=== PATIENT | male | born 1935 | race Caucasian/White ===

== ENCOUNTER → 2017-02-06 | Outpatient (CLI) | payer OTHER, BC ==
[2017-02-06 10:34] LABS: BLOOD UREA NITROGEN 23 mg/dl (7-18); BUN/CREATININE RATIO 16.7 (10-20); CALCIUM 9.1 mg/dl (8.5-10.1); CARBON DIOXIDE 30 mmol/L (21-32); CHLORIDE 110 mmol/L (98-107); GLUCOSE 94 mg/dl (70-99); POTASSIUM 4.9 mmol/L (3.5-5.1); SODIUM 143 mmol/L (136-145)
[2017-02-06 10:38] LABS: CHOLESTEROL 212 mg/dl (0-200); CHOLESTEROL/HDL RATIO 4.3; HDL CHOLESTEROL 49 mg/dl; LDL CHOLESTEROL CALCULATED 115 mg/dl; TRIGLYCERIDES 242 mg/dl (0-150); VERY LOW DENSITY LIPOPROT CALC 48 mg/dl
== END | disposition home or self-care (01) ==
LOC: C.LABFOXMH 10:06
PROVIDERS: ATTEND Internal Medicine
DX: E78.2 Mixed hyperlipidemia (principal)

== ENCOUNTER → 2017-03-14 | Outpatient (CLI) | payer OTHER, BC ==
[2017-03-14 09:11] LABS: BASO % 0.3 %; BASO ABS # 0.03 K/uL (0-0.2); COMPLETE YES; HEMATOCRIT 46.8 % (42-52); LYMPH % 33.3 %; LYMPH ABS # 3.76 K/uL (1.2-3.4); MEAN CELL VOLUME 98.7 fL (80-100); MEAN CORPUSCULAR HEMOGLOBIN 31.2 pg (25-34); MEAN CORPUSCULAR HGB CONC 31.6 g/dl (32-36); MEAN PLATELET VOLUME 10.2 fL (7.4-10.4); MONO % 12.9 %; NEUT % 51.5 %; PLATELET COUNT 194 K/uL (130-400); RED BLOOD COUNT 4.74 M/uL (4.7-6.1); WHITE BLOOD COUNT 11.28 K/uL (4.8-10.8)
[2017-03-14 09:18] LABS: ALT/SGPT 26 U/L (12-78); BLOOD UREA NITROGEN 28 mg/dl (7-18); BUN/CREATININE RATIO 17.4 (10-20); CALCIUM 8.7 mg/dl (8.5-10.1); CARBON DIOXIDE 28 mmol/L (21-32); CHLORIDE 106 mmol/L (98-107); GLUCOSE 105 mg/dl (70-99); POTASSIUM 4.8 mmol/L (3.5-5.1); SODIUM 140 mmol/L (136-145)
[2017-03-14 09:30] LABS: ALB/GLOB RATIO 0.9 (0.9-2); ALKALINE PHOSPHATASE 74 U/L (45-117); AST/SGOT 20 U/L (15-37)
== END | disposition home or self-care (01) ==
LOC: C.LABFOXMH 08:49
PROVIDERS: ATTEND Internal Medicine
DX: R53.83 Other fatigue (principal); R35.1 Nocturia

== ENCOUNTER → 2017-03-15 | Outpatient (CLI) | payer OTHER, BC ==
--- NOTE | 2017-03-15 10:45 | DIAGNOSTIC IMAGING REPORT ---
CHEST 2 VIEWS ROUTINE CLINICAL HISTORY: COUGH dyspnea COMPARISON STUDY: No previous studies for comparison. FINDINGS: Moderate emphysematous change. Slight hilar prominence bilaterally most likely secondary to central pulmonary vasculature. Bipolar cardiac pacemaker. IMPRESSION: Emphysematous change. No acute process. Electronically signed by: Rodolfo Duenas M.D. 03/15/2017 10:44 AM Dictated Date/Time: 03/15/2017 10:41 AM
== END | disposition home or self-care (01) ==
LOC: C.RADBC 10:13
PROVIDERS: ATTEND Internal Medicine
DX: R05 Cough (principal)

== ENCOUNTER → 2017-04-04 | Outpatient (CLI) | payer OTHER, BC | END | disposition home or self-care (01) | LOC: C.LABFOXMH 08:39 | PROVIDERS: ATTEND Internal Medicine Hospice and Palliative Medicine | DX: R53.83 Other fatigue (principal) ==

== ENCOUNTER → 2017-07-11 | Outpatient (CLI) | payer OTHER, BC | END | disposition home or self-care (01) | LOC: C.PATHSPEC 17:13 | PROVIDERS: ATTEND Urology | DX: R31.29 Other microscopic hematuria (principal) ==

== ENCOUNTER → 2017-11-26 | Outpatient (CLI) | payer OTHER, BC ==
[2017-11-26 09:31] LABS: BLOOD UREA NITROGEN 31 mg/dl (7-18); CARBON DIOXIDE 26 mmol/L (21-32); CREATININE 1.58 mg/dl (0.60-1.40); GLUCOSE 105 mg/dl (70-99); POTASSIUM 4.6 mmol/L (3.5-5.1); SODIUM 139 mmol/L (136-145)
== END | disposition home or self-care (01) ==
LOC: C.LABFOXMH 08:55
PROVIDERS: ATTEND Internal Medicine
DX: I10 Essential (primary) hypertension (principal)

== ENCOUNTER → 2017-12-24 | Outpatient (CLI) | payer OTHER, BC | END | disposition home or self-care (01) | LOC: C.LABSPEC 11:32 | PROVIDERS: ATTEND Urology | DX: R39.15 Urgency of urination (principal) ==

== ENCOUNTER → 2018-01-23 | Outpatient (CLI) | payer OTHER, BC ==
[2018-01-23 09:48] LABS: ALBUMIN 3.5 gm/dl (3.4-5.0); ALT/SGPT 20 U/L (12-78); AST/SGOT 17 U/L (15-37); BLOOD UREA NITROGEN 29 mg/dl (7-18); CALCIUM 8.6 mg/dl (8.5-10.1); CARBON DIOXIDE 30 mmol/L (21-32); CREATININE 1.46 mg/dl (0.60-1.40); GLUCOSE 99 mg/dl (70-99); POTASSIUM 4.4 mmol/L (3.5-5.1); SODIUM 141 mmol/L (136-145)
[2018-01-23 09:51] LABS: ALKALINE PHOSPHATASE 73 U/L (45-117); TOTAL PROTEIN 7.1 gm/dl (6.4-8.2)
== END | disposition home or self-care (01) ==
LOC: C.LABFOXMH 08:44
PROVIDERS: ATTEND Internal Medicine
DX: R39.15 Urgency of urination (principal)

== ENCOUNTER → 2018-02-11 | Outpatient (CLI) | payer OTHER, BC ==
[~2018-02-11] MED LIST: OPTIRAY 320 IV PRN
--- NOTE | 2018-02-11 09:23 | DIAGNOSTIC IMAGING REPORT ---
ABD/PELVIS COMBO CLINICAL HISTORY: 82 years-old Male presenting with R31.29 Hematuria, [id number] Urinary urgency, enlarged prostate. TECHNIQUE: Multidetector CT of the abdomen and pelvis was performed before and after the administration of intravenous contrast. IV contrast: 116 mL of Optiray 320. A dose lowering technique was used consistent with the principles of ALARA (as low as reasonably achievable). COMPARISON: 07/08/2015. CT DOSE (mGy.cm): The estimated cumulative dose is 1030.85 mGycm. FINDINGS: Site Lead topogram: Pacer leads to the right atrium and right ventricular apex. Lung bases: Minimal basilar opacities, likely atelectasis. 1.5 cm lobular solid nodule or consolidation in the subpleural right middle lobe (series 5 image 22). Bandlike opacity emanating from this may indicate scarring or atelectasis. Triangular fissural 4 mm nodule in the right middle lobe (series 5 image 9). Trace emphysematous changes. Aortic valve calcification. Pacer lead visualized. Normal heart size. No pericardial or pleural effusion. Liver: Normal morphology. Normal density. No liver lesion. Patent hepatic vasculature. Biliary: No intrahepatic or extrahepatic biliary ductal dilatation. Normal gallbladder. Pancreas: Mild parenchymal atrophy. Spleen: Normal. Adrenal glands: Normal. Kidneys and ureters: No nephrolithiasis. Multiple well-defined hypodense lesions, which are low density and nonenhancing consistent with simple cysts. Multiple parapelvic cysts also noted. No hydronephrosis. Ureters poorly opacified in the distal portions. Allowing for this limitation in their assessment, ureters are nondistended and normal-appearing. No urothelial thickening or ureteral calculi. Bladder: Incompletely evaluated secondary to underdistention. Perivesicular vascular prominence. Pelvic organs: Prostate enlargement likely secondary to benign prostatic hyperplasia. Bowel: Diverticulosis of the sigmoid and descending colon. Mild stool burden. No pericolonic inflammatory change or wall thickening. The appendix is normal. No bowel obstruction. Peritoneal cavity: No free fluid or intraperitoneal gas. Lymph nodes: No enlarged lymph nodes in the abdomen or pelvis. Vasculature: Atherosclerosis of the normal caliber abdominal aorta. IVC patent. Abdominal wall: Normal. Musculoskeletal: Degenerative changes of the spine. IMPRESSION: 1. Diverticulosis of the sigmoid and descending colon. No convincing evidence of diverticulitis. 2. Numerous bilateral renal cysts. No hydronephrosis. No nephrolithiasis or ureteral calculi. 3. Allowing for underdistention of the bladder, prominent perivesicular vascularity could imply acute or chronic inflammation. Correlate with urinalysis to exclude cystitis. Alternatively, this appearance could relate to chronic bladder outlet obstruction. 4. Prostatomegaly. 5. 1.5 cm lobular solid nodule or consolidation in the right middle lobe. Follow-up per [employer] Society 2017 recommendations below. This is indeterminate. Please refer to below summary of Fleischner Society 2017 recommendations for follow-up of incidental CT nodules (H Srikanth et al. Guidelines for management of incidental pulmonary nodules detected on CT images: From the Fleischner Society 2017. Radiology 2017; 284: 228-243.) SOLID NODULES Single nodule; size < 6 mm * Low risk patients: No routine follow-up * High risk patients: Optional CT at 12 months Single nodule; size 6-8 mm * Low risk patients: CT at 6-12 months, then consider CT at 18-24 months * High risk patients: CT at 6-12 months, then at 18-24 months Single nodule; size > 8 mm * Either low or high risk patients: Considered CT at 3 months, PET/CT, or tissue sampling Multiple nodules; size < 6 mm * Low risk patients: No routine follow up * High risk patients: Optional CT at 12 months Multiple nodules; size 6-8 mm * Low risk patients: CT at 3-6 months, then consider CT at 18-24 months * High risk patients: CT at 3-6 months, then at 18-24 months Multiple nodules; size > 8 mm * Low risk patients: CT at 3-6 months, then consider at 18-24 months * High risk patients: CT at 3-6 months, then at 18-24 months SUBSOLID NODULES Single ground-glass nodule * Nodule size < 6 mm: No routine follow-up * Nodule size > or = 6 mm: CT at 6-12 months to confirm persistence, then CT every 2 years until 5 years Single part-solid nodule * Nodule size < 6 mm: No routine follow-up * Nodules size > or = 6 mm: CT at 3-6 months to confirm persistence. If unchanged and solid component remains < 6 mm, annual CT should be performed for 5 years Multiple nodules * Nodule size < 6 mm: CT at 3-6 months. If stable, consider CT at 2 and 4 years. * Nodules size > or = 6 mm: CT at 3-6 months. Subsequent management based on the most suspicious nodule(s) NOTE: 1) These guidelines apply to incidental nodules. These guidelines do NOT apply to patients younger than 35 years, immunocompromised patients, or patients with cancer. 2) Risk categories: * Low risk patients: Minimal or absent history of smoking and/or other known risk factors * High risk patients: History of smoking, exposure to other carcinogens, emphysema, fibrosis, upper lobe location, family history of lung cancer, etc. 3) If a nodule up to 8 mm is partly solid or is ground glass, further follow-up is required after 24 months to exclude possible slow growing adenocarcinoma. Electronically signed by: Arnol Marinelli M.D. 02/11/2018 9:22 AM Dictated Date/Time: 02/11/2018 9:06 AM
== END | disposition home or self-care (01) ==
LOC: C.CTS 08:31
PROVIDERS: ATTEND Urology
DX: R31.29 Other microscopic hematuria (principal); R39.15 Urgency of urination; K57.30 Diverticulosis of large intestine without perforation or abscess without bleeding; Q61.02 Congenital multiple renal cysts; N40.1 Benign prostatic hyperplasia with lower urinary tract symptoms; R91.1 Solitary pulmonary nodule

== ENCOUNTER → 2018-04-25 | Outpatient (CLI) | payer OTHER, BC ==
--- NOTE | 2018-04-25 15:16 | DIAGNOSTIC IMAGING REPORT ---
HEAD WITHOUT CONTRAST (CT) CLINICAL HISTORY: 82 years-old Male with R HEMIPARESIS, HX OF AFIB. Acute strokelike symptoms with right hemiparesis TECHNIQUE: Multiple axial CT images of the head were obtained without contrast. A dose lowering technique was utilized adhering to the principles of ALARA. CT DOSE: 614.27 mGy.cm COMPARISON: None. FINDINGS: No acute intracranial hemorrhage, midline shift, intracranial mass, hydrocephalus, territorial ischemia or abnormal extra-axial collection. Age-related involutional changes. Moderate low-attenuation about the white matter suggests chronic microvascular ischemic changes. Cerebral vascular calcifications are noted. Probable remote subcentimeter lacunar infarction about the left lentiform nucleus posteriorly, images 11 and 12 of series 2. The calvarium is intact. The paranasal sinuses, mastoid air cells, and middle ear cavities are clear. IMPRESSION: 1. No acute intracranial hemorrhage, midline shift or abnormal extra-axial collection. 2. Atrophy with chronic microvascular ischemic changes. 3. Subcentimeter area of low-attenuation about the left lentiform nucleus suggests age-indeterminate lacunar infarction. The above report was generated using voice recognition software. It may contain grammatical, syntax or spelling errors. Electronically signed by: Mio Nguyen M.D. 04/25/2018 3:15 PM Dictated Date/Time: 04/25/2018 3:11 PM
== END | disposition home or self-care (01) ==
LOC: C.CTS 14:58
PROVIDERS: ATTEND Internal Medicine
DX: G81.90 Hemiplegia, unspecified affecting unspecified side (principal); Z86.79 Personal history of other diseases of the circulatory system

== ENCOUNTER → 2018-05-15 | Outpatient (CLI) | payer OTHER, BC ==
--- NOTE | 2018-05-15 11:09 | DIAGNOSTIC IMAGING REPORT ---
CT OF THE CHEST WITHOUT IV CONTRAST CLINICAL HISTORY: Follow up lung nodule. COMPARISON STUDY: CT of the abdomen and pelvis February 11, 2018. CT DOSE: 311.56 mGycm TECHNIQUE: Axial images of the chest were obtained without IV contrast. Images were reviewed in the axial, sagittal, and coronal planes. IV contrast was not administered for this examination. A dose lowering technique was utilized adhering to the principles of ALARA. FINDINGS: No enlarged axillary, mediastinal or hilar lymph nodes are present. A dual lead left subclavian pacemaker is in place. The heart is moderately enlarged. There is no pericardial effusion. There is mild dilatation of the ascending aorta which measures 4.1 cm. There is mild dilatation of the central pulmonary arteries. No pneumothorax or pleural effusion is noted. There is no consolidation to suggest pneumonia. Note is made of a 5 mm subpleural right lower lobe nodule on image 155 of 331. Note is made of a 1.4 cm subpleural nodular opacity within the right middle lobe shown on image 218. This corresponds to the finding on CT of February 11, 2018. There is associated linear density. This nodular density is either stable or slightly decreased since prior exam. This favors atelectasis. Bony thorax is unremarkable. Numerous water attenuation lesions within visualized portions of the kidneys were shown to reflect cysts on prior contrast enhanced exam. IMPRESSION: 1. 1.4 cm subpleural nodular opacity within the right middle lobe which is either unchanged or slightly decreased since CT of February 11, 2018. This favors atelectasis however a follow-up chest CT in 6 months is recommended to ensure stability and exclude the less likely possibility of a neoplasm. 2. 5 mm subpleural right lower lobe nodule which is likely benign but can be assessed on follow-up CT. 3. Mild dilatation of the central pulmonary arteries which raises the possibility of pulmonary arterial hypertension. 4. Mild dilatation of the ascending aorta. Electronically signed by: Leon Mendoza M.D. 05/15/2018 11:08 AM Dictated Date/Time: 05/15/2018 10:57 AM
== END | disposition home or self-care (01) ==
LOC: C.CTS 10:28
PROVIDERS: ATTEND Internal Medicine
DX: R91.1 Solitary pulmonary nodule (principal); R91.8 Other nonspecific abnormal finding of lung field